=== PATIENT | female | born 1965 | race Hispanic/Latino ===

== ENCOUNTER → 2016-11-19 | Outpatient (REF) | payer SELFPAY | LOC: M LAB REF 16:59 | PROVIDERS: ATTEND Specialist | DX: N95.0 Postmenopausal bleeding (principal) ==

== ENCOUNTER → 2017-04-15 | Outpatient (CLI) | payer BC ==
--- NOTE | 2017-04-15 15:18 | REP ---
Right knee five views: There is joint space narrowing and osteophytic formation of the medial compartment compatible with mild osteoarthritis. The lateral compartment and patellofemoral compartment are unremarkable at this time. Mineralization is normal. No calcifications. I suspect there is a small suprapatellar effusion. Impression: Medial compartment osteoarthritis. Probable small suprapatellar effusion. Sign taking Signed by Franco Cisneros MD 04/15/2017 03:09 P
== END ==
LOC: M LRY 14:52
PROVIDERS: ATTEND Nurse Practitioner Family
DX: M25.561 Pain in right knee (principal); M17.11 Unilateral primary osteoarthritis, right knee

== ENCOUNTER → 2017-04-17 | Outpatient (REF) | payer BC ==
[2017-04-17 12:16] LABS: FREE T4 0.92 NG/DL (0.76-1.46)
== END ==
LOC: M SFHCLERA 08:22
PROVIDERS: ATTEND Family Medicine
DX: E03.9 Hypothyroidism, unspecified (principal)

== ENCOUNTER → 2017-04-23 | Outpatient (REF) | payer BC | LOC: M SFHCLERA 11:32 | PROVIDERS: ATTEND Family Medicine | DX: Z12.11 Encounter for screening for malignant neoplasm of colon (principal) ==

== ENCOUNTER → 2017-06-03 | Outpatient (CLI) | payer BC ==
--- NOTE | 2017-06-03 15:43 | REPMRS ---
Patient History The patient states she has not had a clinical breast exam in over a year. Family history of ovarian cancer in maternal grandmother at age 70. Digital Mammo Screening Bilat: June 03, 2017 - Exam #: [id number] Bilateral CC and MLO view(s) were taken. Technologist: Janki Warner, Technologist Prior study comparison: December 12, 2014, digital woman screen mammo, performed at [facility]. June 29, 2012, bilateral bilat screen digital mammo, performed at [facility] ([place]). September 28, 2008, bilateral screening mammogram, performed at [facility]. FINDINGS: The breast tissue is extremely dense which could obscure a lesion on mammography. There is an extremely dense symmetrical pattern of residual fibroglandular tissue. There has been no change in the appearance of the mammogram from the previous studies. There is no interval development of dominant mass, archetectural distortion, or microcalcific cluster suggestive of malignancy. ASSESSMENT: BI-RADS/ACR category 2 mammogram. Benign finding(s). Recommendation Routine screening mammogram of both breasts in 1 year (for women over age 40). This mammogram was interpreted with the aid of an FDA-approved computer-aided dectection system. Electronically Signed By: Sha Alexis MD 06/03/17 [id number]
== END ==
LOC: M RAD 14:30
PROVIDERS: ATTEND Family Medicine
DX: Z12.31 Encounter for screening mammogram for malignant neoplasm of breast (principal)

== ENCOUNTER → 2017-08-13 | Outpatient (REF) | payer BC ==
[2017-08-13 12:30] LABS: FREE T4 0.78 NG/DL (0.76-1.46)
== END ==
LOC: M SFHCLERA 08:48
PROVIDERS: ATTEND Family Medicine
DX: E03.9 Hypothyroidism, unspecified (principal)

== ENCOUNTER → 2018-03-14 | Outpatient (REF) | payer OTHER | LOC: M SFHCLERA 17:23 | DX: R19.7 Diarrhea, unspecified (principal) | CPT/HCPCS: 87086 ==

== ENCOUNTER → 2018-04-01 | Outpatient (REF) | payer OTHER ==
[2018-04-01 17:12] LABS: APPEARANCE, URINE CLEAR (CLEAR); BACTERIA, URINE AUTO NEGATIVE (NEGATIVE); BILIRUBIN, URINE AUTO NEGATIVE (NEGATIVE); BLOOD, URINE BLOOD 2+ (NEGATIVE); COLOR, URINE YELLOW (YELLOW); GLUCOSE, URINE (UA) AUTO NEGATIVE (NEGATIVE); KETONE, URINE AUTO NEGATIVE (NEGATIVE); LEUKOCYTE ESTERASE, URINE AUTO NEGATIVE (NEGATIVE); MUCUS, URINE SMALL (NEGATIVE); NITRITE, URINE AUTO NEGATIVE (NEGATIVE); PROTEIN, URINE AUTO NEGATIVE (NEGATIVE); RBC, URINE AUTO 14 /HPF (0-3); SQUAMOUS EPITHELIAL CELL UR AU 0 /HPF (0-6); WBC, URINE AUTO 0 /HPF (0-3)
[2018-04-01 17:21] LABS: ANION GAP 6 MEQ/L (8-16); BLOOD UREA NITROGEN 17 MG/DL (7-18); CARBON DIOXIDE LEVEL 29 MEQ/L (21-32); CHLORIDE LEVEL 109 MEQ/L (98-107); CREATININE FOR GFR 0.63 MG/DL (0.55-1.30); GLOMERULAR FILTRATION RATE > 60.0 (>51); GLUCOSE, FASTING 87 MG/DL (70-100); POTASSIUM SERUM 4.4 MEQ/L (3.5-5.1); SODIUM LEVEL 144 MEQ/L (136-145)
== END ==
LOC: M SFHCLERA 14:31
DX: R31.9 Hematuria, unspecified (principal)

== ENCOUNTER 2018-04-17 21:01 | Emergency (ER) | payer OTHER ==
[2018-04-17] MEDS ORDERED: FLUORESCEIN OPHTH 1 MG STRIP OU (22:45)
[2018-04-17] MEDS: TETRACAINE 0.5% OPHTH SOLN 4ML OU (22:45)
[2018-04-17] MEDS: LISSAMINE GREEN OPHTH 1.5 MG STRIP OU (22:57)
== END 2018-04-17 23:50 | disposition home or self-care (01) ==
LOC: M ED 21:01
DX: H10.13 Acute atopic conjunctivitis, bilateral (principal); Z87.891 Personal history of nicotine dependence; Z79.899 Other long term (current) drug therapy; Z88.0 Allergy status to penicillin; Z88.6 Allergy status to analgesic agent; Z88.1 Allergy status to other antibiotic agents
CPT/HCPCS: 99284

== ENCOUNTER → 2018-05-04 | Outpatient (CLI) | payer OTHER ==
[~2018-05-04] MED LIST: ISOVUE-370 76% 100ML VIAL (Q9967) As Ordered
== END ==
LOC: M RAD 07:16
DX: N28.1 Cyst of kidney, acquired (principal); K76.89 Other specified diseases of liver; N02.9 Recurrent and persistent hematuria with unspecified morphologic changes
CPT/HCPCS: Q9967

== ENCOUNTER → 2018-05-12 | Outpatient (REF) | payer OTHER ==
[2018-05-12 13:27] LABS: APPEARANCE, URINE CLEAR (CLEAR); BACTERIA, URINE AUTO NEGATIVE (NEGATIVE); BILIRUBIN, URINE AUTO NEGATIVE (NEGATIVE); BLOOD, URINE BLOOD 1+ (NEGATIVE); COLOR, URINE YELLOW (YELLOW); GLUCOSE, URINE (UA) AUTO NEGATIVE (NEGATIVE); KETONE, URINE AUTO TRACE mg/dL (NEGATIVE); LEUKOCYTE ESTERASE, URINE AUTO NEGATIVE (NEGATIVE); MUCUS, URINE SMALL (NEGATIVE); NITRITE, URINE AUTO NEGATIVE (NEGATIVE); PROTEIN, URINE AUTO NEGATIVE (NEGATIVE); RBC, URINE AUTO 8 /HPF (0-3); SPECIFIC GRAVITY URINE AUTO 1.024 (1.002-1.035); SQUAMOUS EPITHELIAL CELL UR AU 0 /HPF (0-6); WBC, URINE AUTO 1 /HPF (0-3)
== END ==
LOC: M SMT 13:04
DX: R31.29 Other microscopic hematuria (principal)
CPT/HCPCS: 81001

== ENCOUNTER → 2018-05-24 | Outpatient (REF) | payer OTHER | LOC: M SFHCLERA 08:54 | DX: E03.9 Hypothyroidism, unspecified (principal) ==

== ENCOUNTER → 2018-08-05 | Outpatient (CLI) | payer OTHER ==
[2018-08-06 12:15] LABS: HEPATITIS C VIRUS ABY INDEX 0.1 INDEX (<0.8)
[2018-08-06 12:15] LABS: HEPATITIS A ANTIBODY IGM NEGATIVE (NEGATIVE); HEPATITIS B SURFACE ANTIBODY NEGATIVE (POSITIVE)
== END ==
LOC: M WUC 10:21
DX: R53.83 Other fatigue (principal)
CPT/HCPCS: 86706

== ENCOUNTER → 2018-08-26 | Outpatient (CLI) | payer OTHER ==
[2018-08-29 00:06] LABS: Lyme Disease IgG/IgM Antibodie <0.91 ISR (0.00-0.90); Lyme Disease IgM Ab Quantitati <0.80 index (0.00-0.79)
== END ==
LOC: M WUC 14:02
DX: M50.321 Other cervical disc degeneration at C4-C5 level (principal); M50.322 Other cervical disc degeneration at C5-C6 level; A69.20 Lyme disease, unspecified

== ENCOUNTER 2019-02-15 06:58 | Day surgery (SDC) | payer OTHER ==
[~2019-02-15] VITALS: Ht 157.5 cm; Wt 67.9 kg
[~2019-02-15 06:58] MED LIST changes: +BUPR150T3; +D 50CAP PO; +ERYT1OIN26; +FLUO20CA8 PO; +HYDR-3363; -ISOVUE-370 76% 100ML VIAL (Q9967) As Ordered; +LEVO50TA5; +MIRA3350 PO; +OMEP20CA3 PO; +PATA2.5S OU; +TYLE500T78 PO
[2019-02-15] MEDS ORDERED: NS 1,000 ML IV ONE (07:30)
[2019-02-15] MEDS ORDERED: PROPOFOL 200 MG/20 ML VIAL As Ordered ONE (07:38)
[2019-02-15] MEDS ORDERED: LIDOCAINE 2% INJ 100 MG/5 ML SDV (FOR ANES.) As Ordered ONE (07:38)
--- NOTE | 2019-02-15 08:41 | ROOR ---
Patient Name: Alia Escoto Procedure Date: 02/15/2019 8:01 AM Date of : 1965 Age: 53 Room: [facility] Gender: Female Note Status: Finalized Procedure: Colonoscopy Indications: Screening for colorectal malignant neoplasm Providers: Jamie Merrill MD Referring MD: PACO LAL MD Requesting Provider: Medicines: Monitored Anesthesia Care Complications: No immediate complications. Procedure: Pre-Anesthesia Assessment: - Prior to the procedure, a History and Physical was performed, and patient medications and allergies were reviewed. The patient is competent. The risks and benefits of the procedure and the sedation options and risks were discussed with the patient. All questions were answered and informed consent was obtained. Patient identification and proposed procedure were verified by the physician, the nurse and the anesthesiologist in the procedure room. Mental Status Examination: alert and oriented. Airway Examination: normal oropharyngeal airway and neck mobility. Respiratory Examination: clear to auscultation. CV Examination: normal. Prophylactic Antibiotics: The patient does not require prophylactic antibiotics. Prior Anticoagulants: The patient has taken no previous anticoagulant or antiplatelet agents. ASA Grade Assessment: II - A patient with mild systemic disease. After reviewing the risks and benefits, the patient was deemed in satisfactory condition to undergo the procedure. The anesthesia plan was to use monitored anesthesia care (MAC). Immediately prior to administration of medications, the patient was re-assessed for adequacy to receive sedatives. The heart rate, respiratory rate, oxygen saturations, blood pressure, adequacy of pulmonary ventilation, and response to care were monitored throughout the procedure. The physical status of the patient was re-assessed after the procedure. The Colonoscope was introduced through the anus and advanced to the terminal ileum, with identification of the appendiceal orifice and IC valve. The colonoscopy was performed without difficulty. The patient tolerated the procedure well. The quality of the bowel preparation was good. The terminal ileum, ileocecal valve, appendiceal orifice, and rectum were photographed. Scope insertion time was 3 minutes. Scope withdrawal time was 9 minutes. The total duration of the procedure was 12 minutes. Findings: The perianal and digital rectal examinations were normal. The terminal ileum appeared normal. A small polyp was found in the transverse colon. The polyp was sessile. The polyp was removed with a cold snare. Resection and retrieval were complete. Verification of patient identification for the specimen was done by the physician and nurse using the patient's name, date and medical record number. Estimated blood loss was minimal. Non-bleeding external and internal hemorrhoids were found during retroflexion. The hemorrhoids were small. Impression: - The examined portion of the ileum was normal. - One small polyp in the transverse colon, removed with a cold snare. Resected and retrieved. - Non-bleeding external and internal hemorrhoids. Recommendation: - Patient has a contact number available for emergencies. The signs and symptoms of potential delayed complications were discussed with the patient. Return to normal activities tomorrow. Written discharge instructions were provided to the patient. - High fiber diet. - Continue present medications. - Await pathology results. - Repeat colonoscopy in 5-10 years for surveillance based on pathology results. - Based on the biopsy results you will receive a phone call from GI clinic in 2-3 weeks to review the pathology results AND/OR your results will be faxed to your Primary care physician. - Return to primary care physician. Jamie Merrill MD Jamie Merrill MD 02/15/2019 8:41:17 AM Electronically signed by Jamie Merrill MD Number of Addenda: 0 Note Initiated On: 02/15/2019 8:01 AM Estimated Blood Loss: Estimated blood loss was minimal.
[2019-02-15 08:50] VITALS: BP 108/64
== END 2019-02-15 09:00 | disposition home or self-care (01) ==
LOC: M OPP 06:58
PROVIDERS: ATTEND Internal Medicine Gastroenterology
DX: D12.3 Benign neoplasm of transverse colon (principal); K64.8 Other hemorrhoids; Z12.11 Encounter for screening for malignant neoplasm of colon

== ENCOUNTER → 2019-02-16 | Outpatient (CLI) | payer OTHER ==
--- NOTE | 2019-02-16 15:40 | REP ---
THORACIC SPINE , THREE VIEWS: HISTORY: Dorsalgia. There is no acute fracture or subluxation. There is loss of height of several mid and lower thoracic intervertebral discs. Anterior osteophytes are present throughout the thoracic spine. IMPRESSION: Degenerative change as described above. Electronically Signed by Skip Elizabeth MD 02/16/2019 03:43 P
[2019-02-16 16:28] LABS: CALCIUM LEVEL 8.9 MG/DL (8.5-10.1)
[2019-02-16 16:35] LABS: HEMOGLOBIN 10.4 g/dl (12.0-15.5); MEAN CORPUSCULAR HEMOGLOBIN 28.7 pg (27.0-33.0); MEAN CORPUSCULAR HGB CONC 31.5 g/dl (32.0-36.5); MEAN CORPUSCULAR VOLUME 91.2 fl (80.0-96.0); PLATELET COUNT, AUTOMATED 242 10^3/uL (150-450); RED BLOOD COUNT 3.62 10^6/uL (4.00-5.40)
[2019-02-16 17:18] LABS: TOTAL 25(OH) VITAMIN D 17.1 NG/ML (30.0-100.0)
== END ==
LOC: M WUC 14:43
PROVIDERS: ATTEND Family Medicine
DX: M51.34 Other intervertebral disc degeneration, thoracic region (principal); E55.9 Vitamin D deficiency, unspecified; D64.9 Anemia, unspecified

== ENCOUNTER → 2019-02-28 | Outpatient (CLI) | payer OTHER ==
[2019-02-28 19:45] LABS: APPEARANCE, URINE MANUAL TURBID (CLEAR); COLOR, URINE MANUAL YELLOW (YELLOW)
[2019-02-28 19:46] LABS: BILIRUBIN, URINE MANUAL NEGATIVE (NEGATIVE); BLOOD URINE MANUAL POSITIVE (NEGATIVE); GLUCOSE, URINE (UA) MANUAL NEGATIVE (NEGATIVE); KETONE, URINE MANUAL NEGATIVE (NEGATIVE); LEUKOCYTE ESTERASE, URINE MAN POSITIVE (NEGATIVE); NITRITE, URINE MANUAL NEGATIVE (NEGATIVE); PROTEIN, URINE MANUAL NEGATIVE (NEGATIVE); UROBILINOGEN, URINE MANUAL NORMAL (NORMAL)
[2019-02-28 20:06] LABS: AMORPHOUS SEDIMENT, URINE LARGE AMOUNT (NEGATIVE); BACTERIA, URINE NONE SEEN; CALCIUM OXALATE CRYSTALS,URINE SMALL AMOUNT /hpf; HYALINE CAST, URINE 0-1 /lpf (0-1); MUCUS, URINE SMALL AMOUNT (NEGATIVE); SQUAMOUS EPITHELIAL CELL URINE LARGE AMOUNT /hpf (SMALL AMT); TRANSITIONAL EPI CELLS, URINE SMALL AMOUNT /hpf
== END ==
LOC: M WUC 17:13
PROVIDERS: ATTEND Family Medicine
DX: N39.0 Urinary tract infection, site not specified (principal)

== ENCOUNTER → 2019-03-07 | Outpatient (CLI) | payer OTHER ==
--- NOTE | 2019-03-07 10:07 | REP ---
RENAL AND BLADDER ULTRASOUND: Real-time sonographic evaluation of the kidneys performed. The kidneys are normal in size and echotexture, right kidney measuring 10.3 x 6.8 x 5.2 cm and kidney 9.8 x 6.0 x 6.2 cm. There is no hydronephrosis bilaterally. There are right renal cysts, a large cyst with septation is seen in the mid to lower right kidney 7.3 x 5.3 x 5.6 cm. There is a smaller cyst in the right upper pole with 3.2 x 2.9 x 2.9 cm. No definite renal stones are seen. Urinary bladder is not optimally distended and not optimally evaluated but no gross abnormality is seen. IMPRESSION: Right renal cysts as discussed above. No hydronephrosis. Electronically Signed by Franco Puente MD 03/07/2019 05:23 P
== END ==
LOC: M RAD 08:39
PROVIDERS: ATTEND Family Medicine
DX: N30.00 Acute cystitis without hematuria (principal); N28.1 Cyst of kidney, acquired

== ENCOUNTER 2019-04-08 21:37 | Emergency (ER) | payer OTHER ==
[~2019-04-08] VITALS: Ht 157.5 cm; Wt 65.9 kg
[2019-04-08 21:39] VITALS: BP 141/81
[2019-04-08] MEDS ORDERED: TETRACAINE 0.5% OPHTH SOLN 4ML OS ONE (22:30)
[2019-04-08] MEDS ORDERED: FLUORESCEIN OPHTH 1 MG STRIP OS ONE (22:30)
[2019-04-08] MEDS ORDERED: NORC1TAB7 PO (23:05)
[2019-04-08] MEDS: ERYTHROMYCIN OPHTH OINT OU ONE ×2 (23:05→23:34)
[2019-04-08] MEDS ORDERED: ERYT1OIN26 OP (23:05)
[2019-04-08] MEDS: NORCO 5/325MG TABLET (BULK FOR ED) PO ONE ×2 (23:05→23:34)
== END 2019-04-08 23:53 | disposition home or self-care (01) ==
LOC: M ED 21:37
DX: H10.32 Unspecified acute conjunctivitis, left eye (principal); Z88.0 Allergy status to penicillin; Z88.1 Allergy status to other antibiotic agents; Z88.8 Allergy status to other drugs, medicaments and biological substances